=== PATIENT | male | born 1960 | race Caucasian/White ===

== ENCOUNTER → 2020-02-18 | Outpatient (CLI) | payer BC, OTHER ==
[~2020-02-18] VITALS: Ht 177.8 cm; Wt 84.4 kg
[~2020-02-18] MED LIST: BIOTIN5 MG PO; CLEOCIN HCL150 MG PO; CRESTOR PO; CRESTOR10 MG PO; FINASTERIDE PO; GLUCOSAMINE &1 EAC1 PO; HYDROCODON-ACE1 EAC7 PO; IRON236 MG PO; LYRICA 75 MG CA75 MG PO; LYRICA PO; MELOXICAM15 MG PO; MULTI VITAMIN1 EACH PO; NEXIUM 40 MG CA40 M1 PO; NORCO 5-325 TA1 EACH PO; PREVACID PO; VICOPROFEN 2001 EACH PO; VIMOVO 500-201 EACH; ZANAFLEX2 M1 PO; ZANAFLEX4 M1 PO
--- NOTE | 2020-02-18 17:08 | P ---
[facility] [place] [address] PROCEDURE REPORT Name: DEBI CUEVAS [facility] [id number] Admission: 02/18/20 Attend Phys: Mayito Caal Discharge: Date of : 56 Report #: [id number] THIS REPORT FOR: cc: Kenji Suresh,Mayito Torres MD ~ CC: Mayito Suresh MD DATE OF SERVICE: 02/18/2020 PROCEDURE PERFORMED: Upper endoscopy with biopsies and esophageal dilation. HISTORY OF PRESENT ILLNESS: The patient is a 59-year-old male with a history of gastroesophageal reflux disease, who underwent an upper endoscopy in 2011 by myself with biopsy showing Pryor's and no dysplasia. He then had a repeat in 2014. Biopsies at that time were negative for Pryor's. He is here for repeat upper endoscopy. He does report mild intermittent dysphagia. He is on Nexium on a daily basis. Denies any heartburn symptoms. DESCRIPTION OF PROCEDURE: The risks and benefits of the procedure were explained to the patient, those risks including but not limited to bleeding, perforation and the risk of sedation. He understood these risks and gave informed consent. Sedation was given using propofol per anesthesia. Next, using a standard Olympus upper endoscope, the scope was placed in the patient's mouth and advanced under direct vision through the esophagus, stomach and into the second portion of the duodenum. The larynx was normal in appearance. The upper and mid esophagus was normal. In the distal esophagus, a possible short segment of Pryor's was noted. Biopsies were obtained. No stricture or narrowing was seen. Upon entering the stomach, a small hiatal hernia was noted. Overall, the gastric mucosa was normal. The pylorus was normal and patent. The duodenal bulb, first and second portion were all normal. Scope was then brought back up into the patient's stomach and a Savary guidewire was inserted through the scope, leaving the wire in place as the scope was then withdrawn. Next, a 48-Bengali Savary dilation of the esophagus was performed without difficulty. The wire and dilator were removed. The scope was reintroduced into the patient's stomach. No evidence of mucosal tear was noted after dilation. The scope was then withdrawn and the procedure terminated. The patient tolerated the procedure well. IMPRESSION: 1. Possible short segment Pryor's. 2. Small hiatal hernia. 3. Otherwise, normal upper endoscopy. [facility] [address] [place] [address] PROCEDURE REPORT Name: DEBI CUEVAS Room #: REG [facility]#: [id number] Admission: 02/18/20 Attend Phys: Mayito Caal Discharge: Date of : 56 Report #: [id number] RECOMMENDATIONS: 1. Await biopsy results. 2. Observe the patient post-dilation. 3. Continue daily PPI therapy. Thank you for allowing me to participate in his care. <ELECTRONICALLY SIGNED> By: Mayito Blue MD 02/18/20 1708 0844 0901 Mayito Blue MD /nt
--- NOTE | 2020-02-23 12:08 | PATH ---
[facility] [address] [place] [address] PATHOLOGY RPT PROCEDURE Name: DEBI BENITES [facility]: [facility] [id number] Admission: 02/18/20 Date of : 56 Discharge: Report #: [id number] Path Case #: [id number] [facility] Accession Number: [id number] . 01 Material submitted: . esophagus - BX DISTAL ESOPHAGUS. Modifiers: distal . 01 Clinical history: . Dysphagia, Hx of Pryor's . 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 - Negative for high-grade dysplasia. - Squamous mucosa with mild esophagitis. (IUV:benjamin; 02/22/2020) QMS 02/22/2020 1439 Local . 02 Comment: Dr. Jeronimo Joseph has reviewed this case and concurs with my diagnosis. (IUV:benjamin; 02/22/2020) . 02 Electronically signed: . Sheila Estevez MD, Pathologist NPI- [id number] . 01 Gross description: . The specimen is received in formalin, labeled "Debi Benites, BX distal esophagus rule out dysplasia" and consists of 2 fragments of pink-day tissue measuring 0.5 x 0.3 x 0.2 cm in aggregate which are entirely submitted in A1. (JMF; 02/18/2020) JFQ/JFQ 02/18/2020 1641 Local . 02 Pathologist provided ICD-10: K22.70, K20.9 . 02 CPT . 841506 Specimen Comment: A courtesy copy of this report has been sent to [phone] Specimen Comment: [id number] Specimen Comment: Report sent to / DR CUBA Performed at: [address] [place] [address] PATHOLOGY RPT PROCEDURE Name: EDBI BENITES Room #: REG [facility]#: [id number] Admission: 02/18/20 Date of : 56 Discharge: Report #: [id number] Path Case #: [id number] [facility] Amanda Campos [address] [place] [address] [address], [place], [place] [id number] MD José Berman MD Phone: [phone] Performed at: [address] [id number] MD Sheila Estevez MD Phone: [phone]
== END | disposition home or self-care (01) ==
LOC: GI 07:05
DX: K22.710 Barrett's esophagus with low grade dysplasia (principal); K20.9 Esophagitis, unspecified; K21.9 Gastro-esophageal reflux disease without esophagitis; R13.10 Dysphagia, unspecified; K44.9 Diaphragmatic hernia without obstruction or gangrene; E78.5 Hyperlipidemia, unspecified; D64.9 Anemia, unspecified; Z90.49 Acquired absence of other specified parts of digestive tract; Z98.890 Other specified postprocedural states; Z98.52 Vasectomy status; Z79.899 Other long term (current) drug therapy; Z88.8 Allergy status to other drugs, medicaments and biological substances; Z11.59 Encounter for screening for other viral diseases
CPT/HCPCS: 62110; 62900

== ENCOUNTER → 2020-03-13 | Outpatient (CLI) | payer BC, OTHER | LOC: LAB 12:50 | PROVIDERS: ATTEND Specialist | DX: Z01.818 Encounter for other preprocedural examination (principal); Z11.59 Encounter for screening for other viral diseases ==

== ENCOUNTER → 2020-03-17 | Outpatient (CLI) | payer BC, OTHER ==
[~2020-03-17] VITALS: Ht 177.8 cm; Wt 84.8 kg
--- NOTE | 2020-03-17 16:02 | P ---
[facility] [place] [address] PROCEDURE REPORT Name: DEBI CUEVAS [facility] [id number] Admission: 03/17/20 Attend Phys: Mayito Caal Discharge: Date of : 56 Report #: [id number] THIS REPORT FOR: cc: Kenji Suresh,Mayito Torres MD ~ CC: Mayito Suresh MD DATE OF SERVICE: 03/17/2020 PROCEDURE PERFORMED: Esophagoscopy with Pryor's ablation. HISTORY OF PRESENT ILLNESS: The patient is a 59-year-old male with a history of Pryor's esophagus, who underwent a routine followup upper endoscopy by myself on 02/18/2020, a short segment of Pryor's was noted. Biopsies were obtained. Biopsies showing Pryor's esophagus with focal low-grade dysplasia, negative for high-grade dysplasia. The patient followed up in the office on 03/09/2020 to discuss options including possible ablation. He agrees with the ablation and is here for his first treatment today. He is on daily PPI therapy. He denies any dysphagia or nausea and vomiting. DESCRIPTION OF PROCEDURE: The risks and benefits of the procedure were explained to the patient, those risks including but not limited to bleeding, perforation and the risk of sedation. He understood these risks and gave informed consent. Sedation was given using propofol per anesthesia. Next, using a standard Olympus upper endoscope, the scope was placed in the patient's mouth and advanced under direct vision through the esophagus, stomach and into the second portion of the duodenum. The larynx was normal in appearance. The upper and mid esophagus was normal. In the distal esophagus at 40 cm at the GE junction, again a short segment of Pryor's was noted. Overall, the gastric mucosa was normal. The pylorus was normal and patent. The duodenal bulb, first and second portion were all normal. The scope was then brought back up into the patient's distal esophagus and this area was irrigated with 1% Mucomyst mixed with water solution. This was then aspirated away. The ablation electrode in channel electrode was advanced through the channel. The Pryor's tissue was targeted by placing the electrode under direct visualization, so that the ablation electrode was in contact with the Pryor's tissue. Energy was applied twice at 40 W/cm squared and 12 joules/cm squared. Each area was treated twice and then the tissue was sloughed off and removed. This was then treated again as per protocol. There was no evidence of bleeding after treatment. The scope was then withdrawn and the procedure terminated. The patient tolerated the procedure well. IMPRESSION: [address] [address] PROCEDURE REPORT Name: DEBI CUEVAS Room #: REG [facility]#: [id number] Admission: 03/17/20 Attend Phys: Mayito Caal Discharge: Date of : 56 Report #: [id number] 1. Short segment Pryor's with low-grade dysplasia, status post first ablation treatment today. 2. Otherwise, normal upper endoscopy. RECOMMENDATIONS: 1. Observe the patient post-procedure. 2. Continue daily PPI therapy. 3. Repeat EGD with likely ablation in 2 months' time. Thank you for allowing me to participate in his care. <ELECTRONICALLY SIGNED> By: Mayito Blue MD 03/17/20 1602 0953 1002 Mayito Blue MD /nt
== END | disposition home or self-care (01) ==
LOC: GI 01-17 10:12
PROVIDERS: ATTEND Specialist
DX: K22.710 Barrett's esophagus with low grade dysplasia (principal); K21.9 Gastro-esophageal reflux disease without esophagitis; D64.9 Anemia, unspecified; E78.5 Hyperlipidemia, unspecified; Z98.890 Other specified postprocedural states; Z90.49 Acquired absence of other specified parts of digestive tract; Z98.52 Vasectomy status; Z79.899 Other long term (current) drug therapy
CPT/HCPCS: 62110; 62900

== ENCOUNTER → 2020-05-19 | Outpatient (CLI) | payer BC, OTHER ==
[~2020-05-19] VITALS: Ht 177.8 cm; Wt 83.9 kg
--- NOTE | 2020-05-24 08:08 | P ---
[facility] [place] [address] PROCEDURE REPORT Name: DEBI CUEVAS [facility] #: [facility] [id number] Admission: 05/19/20 Attend Phys: Mayito Caal Discharge: Date of : 56 Report #: [id number] THIS REPORT FOR: cc: Kenji Suresh,Mayito Torres MD ~ CC: Mayito Suresh MD DATE OF SERVICE: 05/19/2020 PROCEDURE PERFORMED: Esophagoscopy with ablation of Pryor's esophagus. HISTORY OF PRESENT ILLNESS: The patient is a 60-year-old male with a history of Pryor's esophagus, who underwent routine followup upper endoscopy by myself on 02/18/2020, a short segment of Pryor's was noted. Biopsies were obtained. Biopsies at that time showing Pryor's esophagus with focal low-grade dysplasia, negative for high-grade dysplasia. We decided to proceed with ablation. He underwent his first ablation on 03/17/2020. He tolerated this well. He presents again today for repeat upper endoscopy with possible ablation. He is on daily PPI therapy. Denies any dysphagia, nausea or vomiting. DESCRIPTION OF PROCEDURE: The risks and benefits of the procedure were explained to the patient, those risks including but not limited to bleeding, perforation and the risk of sedation. He understood these risks and gave informed consent. Sedation was given using propofol per anesthesia. Next, using a standard Olympus upper endoscope, the scope was placed in the patient's mouth and advanced under direct vision through the esophagus, stomach and into the second portion of the duodenum. The upper and mid esophagus was normal in appearance. In the distal esophagus near the GE junction at 40 cm, 3 small areas of Pryor's were noted. This was improved from previous ablation. No evidence of esophagitis. Overall, the gastric mucosa was normal. The pylorus was normal and patent. The duodenal bulb, first and second portion were all normal. The scope was then brought back up into the patient's distal esophagus and the area was irrigated with 1% Mucomyst mixed with water solution. This was then aspirated away. Next, the scope was then withdrawn and a 60-electrode was secured over the endoscope tip. The scope was then reintroduced into the patient's mouth and advanced into the distal esophagus. The Pryor's tissue was targeted by placing the electrode under direct visualization so that the ablation electrode was in contact with the Pryor's tissue. Energy was applied twice at 40 W/cm squared and 12 joules/cm squared. Each area was treated twice and then the tissue was sloughed off and removed. The area was then treated again as per protocol. There was no evidence of bleeding after treatment. A total of 9 treatments were performed. At this point, the scope was then [address] [address] PROCEDURE REPORT Name: DBEI CUEVAS Room #: REG [facility]#: [id number] Admission: 05/19/20 Attend Phys: Mayito Caal Discharge: Date of : 56 Report #: [id number] withdrawn and the procedure terminated. The patient tolerated the procedure well. IMPRESSION: 1. Short segment Pryor's esophagus with low-grade dysplasia, status post second ablation treatment today. 2. Otherwise, normal upper endoscopy. RECOMMENDATIONS: 1. Observe the patient post procedure. 2. Continue daily PPI therapy. 3. Repeat EGD with likely ablation in 2 months' time. Thank you for allowing me to participate in his care. <ELECTRONICALLY SIGNED> By: Mayito Blue MD 05/24/20 0808 0851 0948 Mayito Blue MD /nt
== END | disposition home or self-care (01) ==
LOC: GI 07:29
PROVIDERS: ATTEND Specialist
DX: K22.710 Barrett's esophagus with low grade dysplasia (principal); K21.9 Gastro-esophageal reflux disease without esophagitis; E78.5 Hyperlipidemia, unspecified; D64.9 Anemia, unspecified; Z11.59 Encounter for screening for other viral diseases; Z98.890 Other specified postprocedural states; Z79.899 Other long term (current) drug therapy; Z88.8 Allergy status to other drugs, medicaments and biological substances; Z98.52 Vasectomy status
CPT/HCPCS: 62110; 62900

== ENCOUNTER → 2020-09-27 | Outpatient (CLI) | payer BC, OTHER ==
[~2020-09-27] MED LIST changes: +BIOTIN1 M1 PO; +CENTRUM SILVER1 EAC5 PO; +GLUCOSAMINE &1 EACH PO; +NABUMETONE 500500 M2 PO; +VITAMIN D325 MC5 PO
== END ==
LOC: LAB 08:48
PROVIDERS: ATTEND Specialist
DX: Z01.812 Encounter for preprocedural laboratory examination (principal); Z20.828 Contact with and (suspected) exposure to other viral communicable diseases

== ENCOUNTER → 2020-10-04 | Outpatient (CLI) | payer BC, OTHER ==
[~2020-10-04] VITALS: Ht 177.8 cm; Wt 83.9 kg
--- NOTE | 2020-10-04 12:12 | P ---
[facility] [place] [address] PROCEDURE REPORT Name: DEBI CUEVAS Room #: REG [facility] Candida.#: [id number] Admission: 10/04/20 Attend Phys: Mayito Caal Discharge: Date of : 56 Report #: [id number] THIS REPORT FOR: cc: Kenji Suresh,Kenji Mccurdy,Mayito Love MD ~ DATE OF SERVICE: 10/04/2020 PROCEDURE PERFORMED: Upper endoscopy with esophageal dilation and ablation of Pryor's esophagus. HISTORY OF PRESENT ILLNESS: The patient is a 60-year-old male with a history of gastroesophageal reflux disease and Pryor's esophagus, who underwent routine followup upper endoscopy by myself on 02/18/2020. A short segment of Pryor's was noted. Biopsies were obtained. Biopsies at that time showing Pryor's esophagus with focal low-grade dysplasia, negative for high-grade dysplasia. We decided to proceed with ablation. He has undergone first ablation on 03/17/2020, second one was on 05/19/2020. He is here for repeat upper endoscopy with possible ablation. He does take Nexium on a daily basis. He does report some mild dysphagia at times. Plan is for upper endoscopy. DESCRIPTION OF PROCEDURE: The risks and benefits of the procedure were explained to the patient, those risks including but not limited to bleeding, perforation and the risk of sedation. He understood these risks and gave informed consent. Sedation was given using propofol per anesthesia. Next, using a standard Olympus upper endoscope, the scope was placed in the patient's mouth and advanced under direct vision through the esophagus, stomach and into the second portion of the duodenum. The larynx was normal in appearance. The upper and mid esophagus was normal in appearance. In the distal esophagus, near the GE junction at 40 cm, 3 small areas of Pryor's were once again noted. This has improved compared to his previous ablations. No evidence of esophagitis or stricture. Overall, the gastric mucosa was normal. The pylorus was normal and patent. The duodenal bulb, first and second portion were all normal. The scope was then brought back up into the patient's stomach and a Savary guidewire was inserted through the scope, leaving the guidewire in place as the scope was then withdrawn. Next, a 48-Luxembourgish Savary dilation was performed of the esophagus without difficulty. The wire and dilator removed. The scope was reintroduced into the patient's stomach. There was no evidence of mucosal tear after dilation. Next, the scope was then brought back up into the patient's distal esophagus and the area was irrigated with 1% Mucomyst mixed with water solution. This was then aspirated away. Next, the in-channel ablation device was then inserted through the scope. The Pryor's tissue was then targeted by placing the electrode under direct visualization, so the ablation electrode was in contact with the Pryor's tissue. Energy was applied twice at 40 W/cm squared and 12 joules/cm squared. Each area was treated twice [address] [address] PROCEDURE REPORT Name: DEBI CUEVAS Room #: REG [facility]#: [id number] Admission: 10/04/20 Attend Phys: Mayito Caal Discharge: Date of : 56 Report #: [id number] and then the tissue was sloughed off and removed. The area was then treated again per protocol. There was no evidence of bleeding after ablation. At this point, the scope was then withdrawn and the procedure terminated. The patient tolerated the procedure well. IMPRESSION: 1. Three short segment areas of Pryor's esophagus, status post ablation treatment as described above. 2. Esophageal dilation. 3. Otherwise, normal upper endoscopy. RECOMMENDATIONS: 1. Observe the patient post-procedure. 2. Continue daily PPI therapy. 3. Repeat upper endoscopy with possible ablation in 2 months' time. Thank you for allowing me to participate in his care. <ELECTRONICALLY SIGNED> By: Mayito Blue MD 10/04/20 1212 0840 0849 Maytio Blue MD /nt
== END | disposition home or self-care (01) ==
LOC: GI 07:00
PROVIDERS: ATTEND Specialist
DX: K22.70 Barrett's esophagus without dysplasia (principal); K21.9 Gastro-esophageal reflux disease without esophagitis; E78.5 Hyperlipidemia, unspecified; D64.9 Anemia, unspecified; Z98.890 Other specified postprocedural states; Z79.899 Other long term (current) drug therapy; Z90.49 Acquired absence of other specified parts of digestive tract; Z98.52 Vasectomy status; Z88.8 Allergy status to other drugs, medicaments and biological substances
CPT/HCPCS: 62110; 62900

== ENCOUNTER → 2020-12-04 | Outpatient (CLI) | payer BC, OTHER | LOC: LAB 12:07 | PROVIDERS: ATTEND Specialist | DX: Z01.812 Encounter for preprocedural laboratory examination (principal); Z20.822 Contact with and (suspected) exposure to COVID-19 ==

== ENCOUNTER → 2020-12-08 | Outpatient (CLI) | payer BC, OTHER ==
[~2020-12-08] VITALS: Ht 177.8 cm; Wt 85.3 kg
--- NOTE | 2020-12-11 12:50 | P ---
[facility] [place] [address] PROCEDURE REPORT Name: DEBI CUEVAS Room #: REG [facility] Josep.#: [id number] Admission: 12/08/20 Attend Phys: Mayito Caal Discharge: Date of : 56 Report #: [id number] THIS REPORT FOR: cc: Kenji Suresh,Kenji Mccurdy,Mayito Love MD ~ DATE OF SERVICE: 12/08/2020 PROCEDURE PERFORMED: Esophagoscopy with ablation of Pryor's esophagus. HISTORY OF PRESENT ILLNESS: The patient is a 60-year-old male with a history of gastroesophageal reflux and Pryor's esophagus, who underwent a routine followup upper endoscopy on 02/18/2020 showing a short segment of Pryor's. Biopsies were obtained at that time, biopsies were showing Pryor's with focal low-grade dysplasia. We decided to proceed with ablation. He has undergone first ablation in 02/2020, second one in April, last and most recent ablation was 10/04/2020. He is here for his fourth upper endoscopy with possible ablation today. Previously had dysphagia and I proceeded with dilation last time. He denies any further dysphagia. He is on Nexium on a daily basis. DESCRIPTION OF PROCEDURE: The risks and benefits of the procedure were explained to the patient, those risks including but not limited to bleeding, perforation and the risk of sedation. He understood these risks and gave informed consent. Sedation was given using propofol per anesthesia. Next, using a standard Olympus upper endoscope, the scope was placed in the patient's mouth and advanced under direct vision through the esophagus, stomach and into the second portion of the duodenum. The larynx was normal in appearance. The upper and mid esophagus was normal. At the GE junction, 3 tiny islands of likely Pryor's were noted. No evidence of esophagitis or stricture. Upon entering the stomach, a small hiatal hernia was once again noted. Overall, the gastric mucosa was normal. The pylorus was normal and patent. The duodenal bulb, first and second portion were all normal. The scope was then brought back up into the patient's distal esophagus and 1% Mucomyst mixed with water solution was then irrigated in the distal esophagus and then aspirated away. Next, the scope was then withdrawn and the 90-degree ablation electrode was attached to the end of the endoscope. The scope was then reintroduced into the patient's distal esophagus. The 3 areas of Pryor's tissue was then targeted by placing the electrode under direct visualization, so the ablation electrode was in contact with the Pryor's tissue. Energy was applied twice at 40 W/cm squared and 12 joules/cm squared. Each area was treated twice and then the tissue was sloughed off and removed. Area was then treated again per protocol. There was no evidence of bleeding after ablation. At this point, the scope was then withdrawn and the procedure terminated. The patient tolerated the procedure well. [address] [address] PROCEDURE REPORT Name: DEBI CUEVAS Room #: REG [facility]#: [id number] Admission: 12/08/20 Attend Phys: Mayito Caal Discharge: Date of : 56 Report #: [id number] IMPRESSION: 1. Three tiny islands of likely Pryor's esophagus, status post ablation as described above. 2. Small hiatal hernia. 3. Otherwise, normal upper endoscopy. RECOMMENDATIONS: 1. Observe the patient post-procedure. 2. Continue daily PPI therapy. 3. Repeat upper endoscopy in 2 months. Thank you for allowing me to participate in his care. <ELECTRONICALLY SIGNED> By: Mayito Blue MD 12/11/20 1250 0840 0855 Mayito Blue MD /nt
== END | disposition home or self-care (01) ==
LOC: GI 06:52
PROVIDERS: ATTEND Specialist
DX: K22.70 Barrett's esophagus without dysplasia (principal); K44.9 Diaphragmatic hernia without obstruction or gangrene; E78.5 Hyperlipidemia, unspecified; K21.9 Gastro-esophageal reflux disease without esophagitis; D64.9 Anemia, unspecified; Z79.899 Other long term (current) drug therapy; Z98.890 Other specified postprocedural states; Z90.49 Acquired absence of other specified parts of digestive tract; Z98.52 Vasectomy status; Z88.8 Allergy status to other drugs, medicaments and biological substances
CPT/HCPCS: 62110; 62900

== ENCOUNTER → 2021-03-23 | Outpatient (CLI) | payer BC, OTHER ==
[~2021-03-23] VITALS: Ht 177.8 cm; Wt 83.9 kg
[~2021-03-23] MED LIST changes: +LYRICA 50 MG50 MG PO
--- NOTE | 2021-03-27 12:42 | P ---
[facility] [place] [address] PROCEDURE REPORT Name: DEBI CUEVAS [facility] [id number] Admission: 03/23/21 Attend Phys: Mayito Caal Discharge: Date of : 56 Report #: [id number] THIS REPORT FOR: cc: Kenji Suresh,Mayito Torres MD ~ DOC #: [id number] cc: MD Mayito Gutierrez MD DATE OF SERVICE: 03/23/2021 PROCEDURE PERFORMED: Esophagoscopy with ablation of Pryor's esophagus. INDICATIONS FOR PROCEDURE: The patient is a 60-year-old male with a history of gastroesophageal reflux disease and Pryor's esophagus. Routine biopsies on 02/18/2020 showing short segment of Pryor's, biopsies obtained at that time also showing Pryor's esophagus with focal low-grade dysplasia. We decided to proceed with ablation. He has undergone his first ablation in 02/2020, the second one in April, again in 09/2020 and the most recent one on 12/08/2020. He denies any dysphagia. He is currently taking Nexium on a daily basis. He is here for routine followup. DESCRIPTION OF PROCEDURE: The risks and benefits of the procedure were explained to the patient, those risks including but not limited to bleeding, perforation and the risk of sedation. He understood these risks and gave informed consent. Sedation was given using propofol per anesthesia. Next, using a standard Olympus upper endoscope, the scope was placed in the patient's mouth and advanced under direct vision through the esophagus, stomach and into the second portion of the duodenum. The larynx was normal in appearance. The upper and mid esophagus was normal. At the GE junction, a few small islands of likely Pryor's were again noted. There was no evidence of esophagitis or stricture. Upon entering the stomach, a small hiatal hernia was once again noted. Overall, the gastric mucosa was normal. The pylorus was normal and patent. The duodenal bulb, first and second portion were all normal. The scope was then brought back up into the patient's distal esophagus and a 1% Mucomyst mixed with water solution was then irrigated in the distal esophagus and aspirated away. Next, the scope was then withdrawn and a 60-degree ablation electrode was attached to the end of the endoscope. The scope was then reintroduced into the patient's distal esophagus. The islands of possible Pryor's were then targeted by placing the electrode under direct visualization, so the ablation electrode was in contact with the Pryor's tissue. Energy was applied twice at 40 W/cm2 and 12 joules/cm2. Each area was treated twice and then the tissue was sloughed off and removed. The area was then treated again per protocol. There was no evidence of bleeding after ablation. At this point, the scope was then withdrawn and the procedure [address] [address] PROCEDURE REPORT Name: MASONDEBI JACK Room #: REG [facility]#: [id number] Admission: 03/23/21 Attend Phys: Mayito Caal Discharge: Date of : 56 Report #: [id number] terminated. The patient tolerated the procedure well. IMPRESSION: 1. Small islands of likely Pryor's, status post ablation as described above. 2. Small hiatal hernia. 3. Otherwise, normal upper endoscopy. RECOMMENDATIONS: 1. Observe the patient post-procedure. 2. Continue daily PPI therapy. 3. Repeat endoscopy in approximately 2 months' time. Thank you for allowing me to participate in his care. Mayito Blue MD CCM/TERRELL <ELECTRONICALLY SIGNED> By: Mayito Blue MD 03/27/21 1242 0745 28 Mayito Blue MD /zainab
== END | disposition home or self-care (01) ==
LOC: GI 06:49
PROVIDERS: ATTEND Specialist
DX: K22.70 Barrett's esophagus without dysplasia (principal); K21.9 Gastro-esophageal reflux disease without esophagitis; K44.9 Diaphragmatic hernia without obstruction or gangrene; E78.5 Hyperlipidemia, unspecified; D64.9 Anemia, unspecified; Z98.890 Other specified postprocedural states; Z79.899 Other long term (current) drug therapy; Z90.49 Acquired absence of other specified parts of digestive tract; Z88.8 Allergy status to other drugs, medicaments and biological substances
CPT/HCPCS: 62110; 62900

== ENCOUNTER 2021-05-08 02:45 | Inpatient (IN) | payer BC, OTHER ==
[~2021-05-08] VITALS: Ht 177.8 cm; Wt 86.9 kg
[2021-05-08 02:52] VITALS: BP 146/82
[2021-05-08 05:12] LABS: ANION GAP 8 mmol/L (7-16); BUN 19 mg/dL (7-18); CALCIUM 9.3 mg/dL (8.5-10.1); CHLORIDE 105 mmol/L (98-107); CO2 30 mmol/L (21-32); GLUCOSE 116 mg/dL (74-106); SODIUM 143 mmol/L (136-145)
[2021-05-08 05:17] LABS: ABSOLUTE NEUTROPHILS 7.7 thou/uL (1.4-8.2); BASOPHILS 0.3 % (0.0-2.0); HEMATOCRIT 43.6 % (42.0-52.0); LYMPHOCYTES 13.6 % (24.0-44.0); MCH 31.8 pg (26.0-34.0); MCHC 34.4 g/dL (28.0-37.0); MCV 92.5 fL (80.0-100.0); MONOCYTES 4.5 % (1.0-8.0); PLATELET COUNT 240 thou/uL (150-400); POLYS 80.6 % (36.0-66.0); RBC 4.72 mil/uL (4.50-6.00); RDW 13.4 % (10.5-14.5); WBC 9.5 thou/uL (4.0-11.0)
[2021-05-08 05:23] LABS: ALBUMIN 4.1 g/dL (3.4-5.0); LIPASE 95 U/L (73-393); SGOT 27 U/L (15-37); SGPT 48 U/L (16-63); TOTAL BILIRUBIN 0.3 mg/dL (0.2-1.0); TOTAL PROTEIN 7.6 g/dL (6.4-8.2); TROPONIN-I <0.06 ng/mL (<0.06)
--- NOTE | 2021-05-08 07:09 | NUR ---
TOOK OVER CARE FROM KENNETH AMADOR AT THIS TIME
--- NOTE | 2021-05-08 07:22 | EKG ---
[address] [address] ELECTROCARDIOGRAM REPORT Name: DEBI CUEVAS Room #: 170-11 ADM IN M.R.#: [id number] Admission: 05/08/21 Attend Phys: Abe Abdul MD Discharge: Date of : 56 Report #: [id number] [facility] ED Test Date: 2021-05-08 Test Time: 02:49:57 Pat Name: DEBI CUEVAS Department: Room: 170 Gender: M [employer]: : 1960 Requested By: Tai Robertson Order Number: [id number] MD: Dell Wallis Measurements Intervals [place] Rate: 72 P: 50 ID: 130 QRS: -7 QRSD: 94 T: 7 QT: 411 QTc: 450 Interpretive Statements Sinus rhythm Baseline wander in lead(s) V1,V2 Compared to ECG 11/20/2015 09:47:07 Short ID interval no longer present Electronically Signed On 05-08-2021 7:22:11 CDT by Dell Wallis [email or web address] <ELECTRONICALLY SIGNED> By: Dell Wallis MD, [facility] 05/08/21 0722 0249 Dell Wallis MD, FAC /EPI
[2021-05-08 07:25] VITALS: BP 111/73
[2021-05-08 07:34] VITALS: BP 111/73
[2021-05-08 08:11] VITALS: BP 122/79
--- NOTE | 2021-05-08 10:45 | NUR ---
ASSESSMENT: CM REVIEWED CHART AND SPOKE WITH PT AT THE BEDSIDE. PT IS ALERT AND ORIENTED X4. PT WAS ADMITTED DUE TO CHOLECYSTITIS. PT REPORTS LIVING IN A HOUSE WITH HIS . PT REPORTS HAVING A COUPLE OF STEPS TO ENTER. PT STATES HE IS FULLY INDEPENDENT WITH ADLS AND AMBULATION. PT DOES REPORT HAVING MULTIPLE CANES/WALKING STICKS AT HOME HE COLLECTS THEM. PT REPORTS HE HAS NO HX OF HH OR SNF. GENERAL SURGERY HAS BEEN CONSULTED TO SEE PT. CM WILL CONTINUE TO FOLLOW TO ASSIST NEEDED.
--- NOTE | 2021-05-08 10:56 | NUR ---
ASSUMED PT CARE FROM ED. PT IS ALERT & ORIENTED X4. PT HAS IV SITE ON R AC RUNNING NS @100ML/HR. FINISHED ADMSSION TODAY. PT IS UP AD TAMIKA. PT STATED HAS BEEN NPO SINCE 10PM LAST NIGHT. PT IS COVID NEGATIVE AND WILL HAVE SURGERY AT 1330. PT ON THE BED, BED ON THE LOWEST POSITION, SIDE RAILS UP, CALL LIGHT WITHIN REACH. WILL CONTINUE TO MONITOR PT. FOLLOW POC.
[2021-05-08 16:25] VITALS: BP 140/73
[2021-05-08 21:30] VITALS: BP 99/64
[2021-05-09 03:00] VITALS: BP 102/88
--- NOTE | 2021-05-09 03:43 | NUR ---
PT A&OX4. HAD A LAPCHOLE DONE. RATES MILD PAIN 5/10 KETOROLAC GIVEN. UP AD TAMIKA AND PT AMBULATED THE HALLWAYS X2 TONIGHT. DENIES N/V. POSSILE D/C TOMORROW.
[2021-05-09 06:21] LABS: ABSOLUTE NEUTROPHILS 11.8 thou/uL (1.4-8.2); HEMATOCRIT 41.5 % (42.0-52.0); HEMOGLOBIN 13.8 gm/dL (14.0-18.0); LYMPHOCYTES 4.9 % (24.0-44.0); MCHC 33.3 g/dL (28.0-37.0); MONOCYTES 3.3 % (1.0-8.0); PLATELET COUNT 225 thou/uL (150-400); POLYS 91.8 % (36.0-66.0); RBC 4.46 mil/uL (4.50-6.00); RDW 13.1 % (10.5-14.5); WBC 12.9 thou/uL (4.0-11.0)
[2021-05-09 06:40] LABS: CALCIUM 8.2 mg/dL (8.5-10.1); CREATININE 0.8 mg/dL (0.7-1.3); POTASSIUM 4.2 mmol/L (3.5-5.1)
--- NOTE | 2021-05-09 13:45 | NUR ---
Patient A/O x4. Room air. AD TAMIKA. walks around unit often. Had a shower today. Right AC IV patent and dressing dry, clean and intact. Has right side ABD pain. percocet given and it has helped per patient.
--- NOTE | 2021-05-09 14:41 | NUR ---
ON-GOING ASSESSMENT: CM REVIEWED CHART. PT IS TOLERATING HIS DIET. PT HAS ORDERS TO DISCHARGE HOME TODAY WITH NO NEEDS. CASE CLOSED.
[2021-05-09 14:42] VITALS: BP 102/88
--- NOTE | 2021-05-10 17:07 | PATH ---
[facility] [place] [address] PATHOLOGY RPT PROCEDURE Name: DEBI BENITES Room #: 444-P [facility] IN M.R.#: [id number] Admission: 05/08/21 Date of : 56 Discharge: 05/09/21 Report #: [id number] Path Case #: [id number] [facility] Accession Number: [id number] . 01 Material submitted: . gallbladder - GALLBLADDER . 01 Clinical history: . LAPAROSCOPIC CHOLECYSTECTOMY CHOLECYSTITIS . 02 Diagnosis: Gallbladder, cholecystectomy: - Moderate acute cholecystitis associated with hyperplastic changes as well as abundant Rokitansky-Aschoff sinuses. - Cholelithiasis. - Negative for malignancy. ([employer]; 05/10/2021) MBR 05/10/2021 1408 Local . 02 Electronically signed: . Sheila Estevez MD, Pathologist NPI- [id number] . 01 Gross description: . Fixative: Formalin Labeled: Debi Benites, Gallbladder Specimen received: Previously disrupted with a 0.7 x 0.4 cm transmural defect Dimensions: 9.8 x 3.0 x 1.3 cm Serosa: Brown-rosario, dusky and hemorrhagic Lymph node: None Mucosa: Day and velvety without haile stippling Average wall thickness: Ranging from 0.2 cm to 0.9 cm Calculi: A green-brown day roughened, 0.8 x 0.7 x 0.6 cm Abnormalities: At the dome, is a 1.2 x 1.2 x 1.2 cm submucosal, day multi- simple cystic lesion, which extends to within 10.2 cm from the cystic duct margin, 6.5 cm from the serosal defect and abuts but does not appear to involve the adventitial margin (inked blue) . Represented sections to include the entirety of the cystic submucosal lesion are submitted in A1-A3 with the cystic duct margin is submitted in A1. ([employer]; 05/09/2021) DKA/CECIL 05/09/2021 1140 Local . 02 Pathologist provided ICD-10: [address] [address] PATHOLOGY RPT PROCEDURE Name: DEBI BENITES [place] Room #: 444-P [facility] IN M.R.#: [id number] Admission: 05/08/21 Date of : 56 Discharge: 05/09/21 Report #: [id number] Path Case #: [id number] K80.00 . 02 CPT . 166118 Specimen Comment: A courtesy copy of this report has been sent to [phone], [phone] Specimen Comment: [phone], Specimen Comment: Report sent to , DR CARTAGENA / DR CUBA Performed at: [address] [facility] [address], [place], [place] [id number] MD Sung Gomez MD Phone: [phone] Performed at: [address] [facility] [address] [id number] MD Sheila Estevez MD Phone: [phone]
== END 2021-05-09 15:04 | disposition home or self-care (01) | DRG 419 ==
LOC: ER 02:45 → EROBS 06:24 → 4S 06:24
PROVIDERS: Emergency Medicine; Surgery; ADMIT Hospitalist; ATTEND Hospitalist
PROC: 0FT44ZZ Resection of Gallbladder, Percutaneous Endoscopic Approach (ICD-10-PCS; principal; 2021-05-08)
DX: K81.0 Acute cholecystitis (principal); E78.5 Hyperlipidemia, unspecified; K21.9 Gastro-esophageal reflux disease without esophagitis; Z20.822 Contact with and (suspected) exposure to COVID-19; Z88.1 Allergy status to other antibiotic agents; Z98.52 Vasectomy status; Z90.49 Acquired absence of other specified parts of digestive tract; Z79.899 Other long term (current) drug therapy
CPT/HCPCS: 10195; 50010; 50101; 50411; 50555; 51489; 52265; 52266; 53307; 54022; 54118; 55245; 56462; 56525; 56526; 57257; 58574; 62110; 62900; 70005

== ENCOUNTER → 2021-07-11 | Outpatient (CLI) | payer BC, OTHER ==
[~2021-07-11] VITALS: Ht 177.8 cm; Wt 85.3 kg
--- NOTE | 2021-07-13 17:34 | P ---
[facility] [place] [place] [address] PROCEDURE REPORT Name: DEBI CUEVAS [id number] Admission: 07/11/21 Attend Phys: Mayito Caal Discharge: Date of : 56 Report #: [id number] THIS REPORT FOR: cc: Kenji Suresh,Mayito Torres MD ~ cc: Kenji Suresh MD DATE OF SERVICE: 07/11/2021 PROCEDURE PERFORMED: Upper endoscopy. HISTORY OF PRESENT ILLNESS: The patient is a 61-year-old male with a long history of gastroesophageal reflux disease and Pryor's esophagus. Routine biopsies on 02/18/2020 showing short segment of Pryor's at that time with focal low-grade dysplasia. We therefore decided to ablate. He has undergone a total of 4 ablations in the past, much improved last upper endoscopy which was performed 03/23/2021. He is on Nexium on a daily basis. Denies any symptoms. DESCRIPTION OF PROCEDURE: The risks and benefits of the procedure were explained to the patient, those risks including but not limited to bleeding, perforation and the risk of sedation. He understood these risks and gave informed consent. Sedation was given using propofol per anesthesia. Next, using a standard Olympus upper endoscope, the scope was placed in the patient's mouth and advanced under direct vision through the esophagus, stomach and into the second portion of the duodenum. The larynx was normal in appearance. The esophagus was normal throughout. The GE junction was normal at this time. There was no evidence of Pryor's, no evidence of esophagitis. Overall, this gastric mucosa was normal. The pylorus was normal and patent. The duodenal bulb, first and second portion were all normal. At this point, the scope was then withdrawn and the procedure terminated. The patient tolerated the procedure well. IMPRESSION: Normal upper endoscopy. No further evidence of Pryor's esophagus. RECOMMENDATIONS: 1. Continue daily PPI therapy. 2. Repeat upper endoscopy in 1 year. Thank you for allowing me to participate in his care. <ELECTRONICALLY SIGNED> By: Mayito Blue MD 07/13/21 1734 1137 [id number] Mayito Blue MD /nt
== END | disposition home or self-care (01) ==
LOC: GI 10:22
PROVIDERS: ATTEND Specialist
DX: K21.9 Gastro-esophageal reflux disease without esophagitis (principal); E78.5 Hyperlipidemia, unspecified; Z98.890 Other specified postprocedural states; Z90.49 Acquired absence of other specified parts of digestive tract; Z79.899 Other long term (current) drug therapy; Z98.52 Vasectomy status; Z20.822 Contact with and (suspected) exposure to COVID-19
CPT/HCPCS: 62110; 62900